=== PATIENT | female | born 1965 | race African-American/Black ===

== ENCOUNTER 2017-09-07 08:46 | Emergency (ER) | payer MEDICARE, BC ==
[~2017-09-07] VITALS: Ht 170.2 cm; Wt 104.3 kg
[~2017-09-07 08:46] MED LIST: ABILIFY 5 MG TAB5 MG PO; ALDACTONE25 MG PO; BAYER CHEWABLE81 MG PO; BYETTA PEN 51 PENIN1 SC; CALCIUM 600 +1 EAC1 PO; CARVEDILOL6.25 MG PO; CO Q-10100 MG PO; CYMBALTA60 MG PO; DEPO-SUBQ104 MG/0.6 PO; FLEXERIL PO; IRON325 PO; LANOXIN 0.120.125 M1 PO; LASIX 20 MG TAB20 MG PO; LEVOTHYROXINE0.05 MG PO; LISINOPRIL10 MG PO; MAGNESIUM OXID400 MG PO; NEXIUM40 MG PO; OMEGA-31000 M1 PO; PHENERGAN 25 MG25 M1 PO; POTASSIUM20 PO; TRAMADOL 50 MG50 MG PO; TRAZODONE 150150 M1 PO; TRAZODONE HCL50 MG PO; TYLENOL325 MG PO; UNICOMPLEX M TA1 TA1 PO; VITAMIN B-1100 M1 PO; VITAMIN B12-FO1 EAC1 PO; VITAMIN D1000 UNI1 PO; VITAMINC500 PO; WELLBUTRIN SR150 MG PO; WELLBUTRIN XL300 MG PO; XANAX 0.5 MG0.5 MG PO; ZINC CHELATE50 MG PO
[2017-09-07 09:00] LABS: URINE BILIRUBIN NEGATIVE (Negative); URINE BLOOD TRACE (Negative); URINE CLARITY CLEAR; URINE COLOR YELLOW; URINE GLUCOSE-RANDOM NEGATIVE (Negative); URINE KETONES TRACE (Negative); URINE LEUKOCYTES-REFLEX NEGATIVE (Negative); URINE NITRITE-REFLEX NEGATIVE (Negative); URINE PROTEIN NEGATIVE (Negative); URINE UROBILINOGEN 0.2 E.U./dl (0.2-1.0)
[2017-09-07 09:25] LABS: HEMATOCRIT 41.5 % (37.0-47.0); HEMOGLOBIN 13.3 gm/dL (12.0-15.0); MCH 25.7 pg (26.0-34.0); MCHC 32.2 g/dL (28.0-37.0); MCV 79.8 fL (80.0-100.0); MPV 9.8 fl. (7.2-11.1); NUCLEATED RBCS 0 /100WBC; PLATELET COUNT* 197 thou/uL (150-400); RDW-CV 13.3 % (10.5-14.5); WBC 19.2 thou/uL (4.0-11.0)
[2017-09-07 09:28] LABS: ANION GAP 8 mmol/L (7-16); BUN 15 mg/dL (7-18); CALCIUM 9.7 mg/dL (8.5-10.1); CHLORIDE 96 mmol/L (98-107); CO2 32 mmol/L (21-32); GLUCOSE 196 mg/dL (70-99); POTASSIUM 4.3 mmol/L (3.5-5.1); SODIUM 136 mmol/L (136-145)
[2017-09-07 09:35] LABS: ALBUMIN 3.6 g/dL (3.4-5.0); ALKALINE PHOSPHATASE 98 U/L (46-116); LIPASE 45 U/L (73-393); SGOT 29 U/L (15-37); SGPT 29 U/L (30-65); TOTAL BILIRUBIN 0.9 mg/dL (<0.1-1.0); TOTAL PROTEIN 7.7 g/dL (6.4-8.2); TROPONIN-I LEVEL <0.06 ng/mL (<0.06)
[2017-09-07 09:43] LABS: ABSOLUTE BASOPHILS 0.2 thou/uL (0.0-0.2); ABSOLUTE EOSINOPHILS 0.2 thou/uL (0.0-0.7); ABSOLUTE MONOCYTES 0.6 thou/uL (0.0-1.2); ABSOLUTE NEUTROPHILS 17.3 thou/uL (1.6-8.1); ANISOCYTOSIS 1+; PLATELET ESTIMATE ADEQUATE; POIKILOCYTOSIS 1+
[2017-09-07] MEDS ORDERED: TRAMADOL 50 MG50 MG PO (10:58)
[2017-09-07] MEDS ORDERED: FLAGYL500 MG PO (10:58)
[2017-09-07] MEDS ORDERED: AUGMENTIN 875-1 EACH PO (10:58)
[2017-09-07] MEDS ORDERED: ZOFRAN ODT4 MG PO (11:00)
[2017-09-07 11:31] VITALS: BP 132/72
--- NOTE | 2017-09-08 12:15 | EKG ---
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 : 1965 Requested By: Robert Mauricio Order Number: [id number] MD: Ajay Upton Measurements Intervals [place] Rate: 102 P: 53 MI: 202 QRS: -32 QRSD: 113 T: 120 QT: 390 QTc: 509 Interpretive Statements Sinus tachycardia pvc's Borderline prolonged MI interval LVH with IVCD and secondary repol abnrm Prolonged QT interval No previous ECG available for comparison Electronically Signed On 09-08-2017 12:14:59 [employer] by Ajay Upton [email or web address] <ELECTRONICALLY SIGNED> By: Ajay Upton MD, [facility] 09/08/17 1214 09 9 Ajay Upton MD, [facility] /EPI
== END 2017-09-07 11:36 | disposition home or self-care (01) ==
LOC: M.ERS 08:46
PROVIDERS: Emergency Medicine Emergency Medical Services
DX: K52.9 Noninfective gastroenteritis and colitis, unspecified (principal); E78.5 Hyperlipidemia, unspecified; I11.0 Hypertensive heart disease with heart failure; I50.9 Heart failure, unspecified; E11.9 Type 2 diabetes mellitus without complications; G43.909 Migraine, unspecified, not intractable, without status migrainosus; F32.9 Major depressive disorder, single episode, unspecified; F41.9 Anxiety disorder, unspecified; E03.9 Hypothyroidism, unspecified; Z88.8 Allergy status to other drugs, medicaments and biological substances; Z88.5 Allergy status to narcotic agent; Z88.6 Allergy status to analgesic agent